=== PATIENT | male | born 1990 | race American Indian/Alaskan Native ===

== ENCOUNTER 2018-10-26 10:01 | Emergency (ER) | payer BC, MEDICAID ==
[2018-10-26 10:09] VITALS: BP 137/74
--- NOTE | 2018-10-26 12:03 | Emergency Department Report ---
ED General Adult HPI - General Chief complaint: Pain General Stated complaint: BACK/ARM/FEET/HANDS PAIN Time Seen by Provider: 10/26/18 11:40 Source: patient Mode of arrival: Ambulatory Limitations: No Limitations - History of Present Illness Initial comments: 28-year-old male presents to ED with diffuse body pain 1 week. 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 Patient states pain is especially in his back and left Achilles tendon. Patient denies injury to left foot or ankle. Reports chronic lower back pain. Patient is ambulatory. -: week(s) (1) Quality: aching Consistency: constant Improves with: none Worsens with: none Associated Symptoms: denies: fever/chills Treatments Prior to Arrival: NSAID - Related Data Previous Rx's Medication Instructions Recorded Last Taken Type Naproxen [Naprosyn] 500 mg PO BID #20 tablet 10/26/18 Unknown Rx methOCARBAMOL [Robaxin TAB] 500 mg PO Q8HR PRN #20 tablet 10/26/18 Unknown Rx Allergies Allergy/AdvReac Type Severity Reaction Status Date / Time No Known Allergies Allergy Unverified 10/26/18 10:03 ED Review of Systems ROS: Stated complaint: BACK/ARM/FEET/HANDS PAIN Other details as noted in HPI Comment: All other systems reviewed and negative Constitutional: denies: chills, fever Musculoskeletal: back pain, arthralgia, myalgia ED Past Medical Hx - Past Medical History Previous Medical History?: No - Surgical History Past Surgical History?: No - Social History Smoking Status: Never Smoker - Medications Home Medications: Home Medications Medication Instructions Recorded Confirmed Last Taken Type Naproxen [Naprosyn] 500 mg PO BID #20 tablet 10/26/18 Unknown Rx methOCARBAMOL [Robaxin TAB] 500 mg PO Q8HR PRN #20 tablet 10/26/18 Unknown Rx ED Physical Exam - General Limitations: No Limitations General appearance: alert, in no apparent distress - Head Head exam: Present: atraumatic, normocephalic - Eye Eye exam: Present: normal appearance - ENT ENT exam: Present: mucous membranes moist - Neck Neck exam: Present: normal inspection - Respiratory Respiratory exam: Present: normal lung sounds bilaterally. Absent: respiratory distress - Cardiovascular Cardiovascular Exam: Present: regular rate, normal rhythm - GI/Abdominal GI/Abdominal exam: Present: soft. Absent: distended, tenderness - Extremities Exam Extremities exam: Present: normal inspection, full ROM. Absent: joint swelling - Back Exam Back exam: Present: full ROM - Neurological Exam Neurological exam: Present: alert, oriented X3, CN II-XII intact, normal gait. Absent: motor sensory deficit - Psychiatric Psychiatric exam: Present: normal affect, normal mood - Skin Skin exam: Present: warm, dry, intact, normal color ED Course Vital Signs 10/26/18 10:07 Temperature 98.4 F Pulse Rate 60 Respiratory 16 Rate Blood Pressure 137/74 O2 Sat by Pulse 98 Oximetry Critical care attestation.: If time is entered above; I have spent that time in minutes in the direct care of this critically ill patient, excluding procedure time. ED Disposition Clinical Impression: Arthralgia Disposition: DC-01 TO HOME OR SELFCARE Is pt being admited?: No Condition: Stable Instructions: Arthralgia (ED) Referrals: DANIEL MCMAHON MD [Staff Physician] - 3-5 Days Time of Disposition: 12:03
== END 2018-10-26 12:28 | disposition home or self-care (01) ==
LOC: ED 10:01
DX: M54.5 Low back pain (principal); G89.29 Other chronic pain; M79.10 Myalgia, unspecified site
CPT/HCPCS: 99282

== ENCOUNTER 2018-12-07 06:55 | Emergency (ER) | payer MEDICAID ==
[2018-12-07] MEDS ORDERED: IBUPROFEN PO ONE (07:52)
--- NOTE | 2018-12-07 07:52 | Emergency Department Report ---
ED Back Pain/Injury HPI - General Chief Complaint: Shoulder Injury Stated Complaint: BODY PAIN Time Seen by Provider: 12/07/18 07:46 Source: patient Limitations: No Limitations, Language Barrier - History of Present Illness Initial Comments: 28 YO COMES TO ER WITH GENERALIZED MUSCLE ACHES AND PAINS AFTER WORKING THE LAST SEVERAL DAYS. 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 THE ENVIRONMENT IS COOL PER PT REPORT. HE STATES "I AM SORE AND I HAVE TO BE AT WORK AT 1000." PAIN WORSE WITH MOVEMENT. IMPROVES WITH REST. HAS TAKEN NO OTC MEDS AT HOME TO ALLEVIATE PAIN. NO TRAUMA/FALL/SYSTEMIC SYMPTOMS/FEVER. PMH NONE PSH NONE RX NONE MD Complaint: other -: Gradual Similar Symptoms Previously: Yes Place: work Radiation: none Quality: aching Improves With: immobilization Worsens With: movement Associated Symptoms: denies other symptoms - Related Data Previous Rx's Medication Instructions Recorded Last Taken Type Naproxen [Naprosyn] 500 mg PO BID #20 tablet 10/26/18 Unknown Rx methOCARBAMOL [Robaxin TAB] 500 mg PO Q8HR PRN #20 tablet 10/26/18 Unknown Rx Allergies Allergy/AdvReac Type Severity Reaction Status Date / Time No Known Allergies Allergy Unverified 10/26/18 10:03 ED Review of Systems ROS: Stated complaint: BODY PAIN Other details as noted in HPI Comment: All other systems reviewed and negative ED Past Medical Hx - Past Medical History HX ACUTE bronchitis Surgical history: no surgical history Psychiatric history: no pertinent history Family history: no significant family history ED Back Pain Physical Exam - Exam General: Vital signs noted. No distress. Alert and acting appropriately. ALERT/ORIENTED NO FOCAL DEFICIT AMBULATORY S1S2 LUNGS CTA ABD SNT FULL ROM ALL EXTREMITIES AMBULATORY IN ACC WITH NORMAL VS; REQUESTING WORK NOTE Back/Abdomen: No Abdominal Tenderness, No Perithoracic Tenderness, No Perilumbar Tenderness, No Sacroiliac Tenderness, No Flank Tenderness, No Straight Leg Raise Pain Neuro: Yes Normal Sensation, Yes Normal DTR's, Yes Normal Gait, No Motor Weakness ED Course Vital Signs 12/07/18 07:01 Temperature 98.1 F Pulse Rate 71 Respiratory 16 Rate Blood Pressure 136/86 O2 Sat by Pulse 99 Oximetry ED Medical Decision Making - Medical Decision Making MUSCULOSKELETAL PAIN NO TRAUMA NORMAL EXAM NORMAL VS REQUESTING WORK NOTE MEDICATED WITH MOTRIN DC HOME WITH DC PLAN OF CARE AND PCP FOLLOW UP IF NEEDED. Vital Signs 12/07/18 07:01 Temperature 98.1 F Pulse Rate 71 Respiratory 16 Rate Blood Pressure 136/86 O2 Sat by Pulse 99 Oximetry - Differential Diagnosis MUSCLE STRAIN Critical care attestation.: If time is entered above; I have spent that time in minutes in the direct care of this critically ill patient, excluding procedure time. ED Disposition Clinical Impression: Musculoskeletal pain Disposition: DC-01 TO HOME OR SELFCARE Is pt being admited?: No Does the pt Need Aspirin: No Condition: Stable Instructions: Musculoskeletal Pain (ED) Additional Instructions: rest hydrate well with water good body mechanics at work diet and activity as tolerated OVER THE COUNTER MOTRIN OR TYLENOL FOR PAIN follow up pcp if persists referral below Referrals: LILIA HOPPER MD [Primary Care Provider] - 3-5 Days Forms: Work/School Release Form(ED) Time of Disposition: 08:28
[2018-12-07 08:50] VITALS: BP 130/109
== END 2018-12-07 08:50 | disposition home or self-care (01) ==
LOC: ED 06:55
DX: M79.10 Myalgia, unspecified site (principal); Z79.899 Other long term (current) drug therapy
CPT/HCPCS: 99282

== ENCOUNTER 2019-02-21 19:24 | Emergency (ER) | payer SELFPAY ==
--- NOTE | 2019-02-21 20:17 | Event Note ---
ED Screening Note Date of service: 02/21/19 Time: 20:12 ED Screening Note: This is a 28 y.o. M. that presents to the ER with bilateral testicular pain x 3 weeks. Patient reports pain as twisting sensation. States symptoms started on right testicle which is swollen. - urinary frequency, urgency, dysuria, pelvic pain, back pain, or chills This initial assessment/diagnostic orders/clinical plan/treatment(s) is/are subject to change based on patients health status, clinical progression and re- assessment by fellow clinical providers in the ED. Further treatment and workup at subsequent clinical providers discretion. Patient/guardian urged not to elope from the ED as their condition may be serious if not clinically assessed and managed. Initial orders include: Testicular US Labs
--- NOTE | 2019-02-21 22:31 | Ultrasound Report ---
Testicular ultrasound INDICATION: Bilateral testicular pain/swelling FINDINGS: The right testicle measures 4.2 cm and the left testicle measures 3.5 cm. The echotexture of the test icles is normal. There is arterial flow in both testicles. Epididymides are unremarkable. No hydrocel es are seen. Arterial flow is symmetric bilaterally. No fluid collections are seen. IMPRESSION: There is arterial flow to both testicles. There is no evidence of torsion. No discrete testicular les ions are seen. Signer Name: Morgan Silveira MD Signed: 02/21/2019 10:26 PM Workstation Name: [id number]
[2019-02-21 23:05] LABS: Bilirubin,Urine NEG (Negative); Blood,Urine MOD (Negative); Color,Urine Yellow (Yellow); Mucus,Urine FEW /HPF; Protein,Urine <15 mg/dL mg/dL (Negative); Urobilinogen,Urine < 2.0 mg/dL (<2.0)
--- NOTE | 2019-02-22 00:25 | Emergency Department Report ---
ED Male HPI - General Chief complaint: Urogenital-Male Stated complaint: TESTICULAR PAIN Time Seen by Provider: 02/21/19 20:12 Source: patient Mode of arrival: Ambulatory Limitations: No Limitations - History of Present Illness Initial comments: This is a 28 y.o. M. that presents to the ER with bilateral testicular pain x 3 weeks. Patient reports pain as twisting sensation. States symptoms started on right testicle which is swollen. - urinary frequency, urgency, dysuria, pelvic pain, back pain, or chills. no penile discharge, no fever, no chills. MD Complaint: testicle pain Onset/Timin -: week(s) Location: right testicle Radiation: none Severity: moderate Severity scale (0 -10): 5 Quality: sharp Consistency: intermittent Improves with: none Worsens with: palpation, movement swelling. denies: discharge, mass, rash, urinary retention, blood in urine, dysuria, fever, nausea/vomiting, incontinence - Related Data Sexually active: Yes Previous Rx's Medication Instructions Recorded Last Taken Type Naproxen [Naprosyn] 500 mg PO BID #20 tablet 10/26/18 Unknown Rx methOCARBAMOL [Robaxin TAB] 500 mg PO Q8HR PRN #20 tablet 10/26/18 Unknown Rx Doxycycline Hyclate [Doxycycline 100 mg PO BID 10 Days #20 tab 02/22/19 Unknown Rx Hyclate TAB] Allergies Allergy/AdvReac Type Severity Reaction Status Date / Time No Known Allergies Allergy Unverified 10/26/18 10:03 ED Review of Systems ROS: Stated complaint: TESTICULAR PAIN Other details as noted in HPI Constitutional: denies: chills, fever Eyes: denies: eye pain, eye discharge, vision change ENT: denies: ear pain, throat pain Respiratory: denies: cough, shortness of breath, wheezing Cardiovascular: denies: chest pain, palpitations Endocrine: no symptoms reported Gastrointestinal: denies: abdominal pain, nausea, diarrhea Genitourinary: testicular pain. denies: urgency, dysuria Musculoskeletal: denies: back pain, joint swelling, arthralgia Skin: denies: rash, lesions Neurological: denies: headache, weakness, paresthesias Psychiatric: denies: anxiety, depression Hematological/Lymphatic: denies: easy bleeding, easy bruising ED Past Medical Hx - Past Medical History Hx Kidney Stones: Yes Additional medical history: HX ACUTE bronchitis - Surgical History Past Surgical History?: No - Social History Smoking Status: Never Smoker Substance Use Type: None - Medications Home Medications: Home Medications Medication Instructions Recorded Confirmed Last Taken Type Naproxen [Naprosyn] 500 mg PO BID #20 tablet 10/26/18 Unknown Rx methOCARBAMOL [Robaxin TAB] 500 mg PO Q8HR PRN #20 tablet 10/26/18 Unknown Rx Doxycycline Hyclate [Doxycycline 100 mg PO BID 10 Days #20 tab 02/22/19 Unknown Rx Hyclate TAB] ED Physical Exam - General Limitations: No Limitations General appearance: alert, in no apparent distress - Head Head exam: Present: atraumatic, normocephalic - Eye Eye exam: Present: normal appearance - ENT ENT exam: Present: mucous membranes moist - Neck Neck exam: Present: normal inspection - Respiratory Respiratory exam: Present: normal lung sounds bilaterally. Absent: respiratory distress - Cardiovascular Cardiovascular Exam: Present: regular rate, normal rhythm, normal heart sounds. Absent: systolic murmur, diastolic murmur, rubs, gallop - GI/Abdominal GI/Abdominal exam: Present: soft, normal bowel sounds. Absent: distended, tenderness, guarding, rebound, rigid, bruit, hernia - Rectal Rectal exam: Present: deferred - exam: Present: normal inspection, testicular tenderness (right epididymal tenderness to palpation), circumcision. Absent: urethral discharge, scrotal swelling, vertical testicular lie External exam: Present: normal external exam. Absent: erythema, swelling, lesions, lacerations, ecchymosis, bleeding - Extremities Exam Extremities exam: Present: normal inspection, full ROM. Absent: tenderness - Back Exam Back exam: Present: normal inspection, full ROM. Absent: tenderness, CVA tenderness (R), CVA tenderness (L), rash noted - Neurological Exam Neurological exam: Present: alert, oriented X3, CN II-XII intact, normal gait - Psychiatric Psychiatric exam: Present: normal affect, normal mood - Skin Skin exam: Present: warm, dry, intact, normal color. Absent: rash ED Course Vital Signs 02/21/19 19:30 Temperature 98.7 F Pulse Rate 95 H Respiratory 18 Rate Blood Pressure 145/89 O2 Sat by Pulse 100 Oximetry ED Medical Decision Making - Lab Data Labs 02/21/19 22:00 Urine Color Yellow Urine Turbidity Clear Urine pH 6.0 Ur Specific [place] 1.020 Urine Protein <15 mg/dl Urine Glucose (UA) Neg Urine Ketones Neg Urine Blood Mod Urine Nitrite Neg Urine Bilirubin Neg Urine Urobilinogen < 2.0 Ur Leukocyte Esterase Neg Urine WBC (Auto) 1.0 Urine RBC (Auto) 4.0 U Epithel Cells (Auto) < 1.0 Urine Mucus Few - Medical Decision Making this is epididymitis, US scrotum: normal, there is no discharge no swelling no hernia on exam, ua: normal, plan: tx of epididymitis with doxycycline po , ibuprofen, follow up with pcp in 2-3 days, pt verbalized agreement and understanding of discharge plan, Critical care attestation.: If time is entered above; I have spent that time in minutes in the direct care of this critically ill patient, excluding procedure time. ED Disposition Clinical Impression: Epididymitis Disposition: DC-01 TO HOME OR SELFCARE Is pt being admited?: No Does the pt Need Aspirin: No Condition: Stable Instructions: Epididymitis (ED) Prescriptions: Doxycycline Hyclate [Doxycycline Hyclate TAB] 100 mg PO BID 10 Days #20 tab Referrals: [facility] [Outside] - 3-5 Days Forms: STI Treatment and Prevention Time of Disposition: 00:26
[2019-02-22 06:25] VITALS: BP 141/69
== END 2019-02-22 01:20 | disposition home or self-care (01) ==
LOC: ED 19:24
DX: N45.1 Epididymitis (principal)
CPT/HCPCS: 81001; 93975

== ENCOUNTER 2019-04-19 15:55 | Emergency (ER) | payer SELFPAY ==
[2019-04-19] MEDS ORDERED: IBUPROFEN 600 MG TAB PO ONE ×2 (16:28→16:29)
--- NOTE | 2019-04-19 16:31 | Emergency Department Report ---
Blank Doc - Documentation Documentation: 29-year-old male that presents with URI symptoms. This initial assessment/diagnostic orders/clinical plan/treatment(s) is/are subject to change based on patient's health status, clinical progression and re- assessment by fellow clinical providers in the ED. Further treatment and workup at subsequent clinical providers discretion. Patient/guardians urged not to elope from the ED as their condition may be serious if not clinically assessed and managed. Initial orders include: 1- Patient sent to ACC for further evaluation and treatment 2- sung-RN to repeat vitals 3- CXR
--- NOTE | 2019-04-19 17:36 | XRay Report ---
CHEST 2 VIEWS INDICATION: cough. COMPARISON: None. FINDINGS: Support devices: None. Heart: Within normal limits. Lungs/Pleura: No acute air space or interstitial disease. No significant pleural effusion. IMPRESSION: No acute findings. Signer Name: Maximino Joshua MD Signed: 04/19/2019 5:32 PM Workstation Name: [id number]
--- NOTE | 2019-04-19 20:31 | Emergency Department Report ---
Minor Respiratory - HPI Chief Complaint: Upper Respiratory Infection Stated Complaint: FLU LIKE SX Time Seen by Provider: 04/19/19 16:30 Duration: 2 Days Pain Location: Chest Severity: moderate Minor Respiratory: Yes Rhinorrhea, Yes Able to Tolerate Fluids, Yes Cough, Yes Sick Contacts, Yes Chest Pain, Yes Fever, No Sore Throat, No Ear Pain, No Hemoptysis, No Shortness of Breath Other History: This is a 29-year-old -[place] male who presents to the emergency room with chest discomfort, fever, chills, cough, and myalgia for 2 days. Patient states he's taken DayQuil and NyQuil with minimal improvement of symptoms. ED Review of Systems ROS: Stated complaint: FLU LIKE SX Other details as noted in HPI Constitutional: chills, fever ENT: congestion. denies: ear pain, throat pain Respiratory: cough. denies: shortness of breath, wheezing Cardiovascular: chest pain. denies: palpitations Gastrointestinal: denies: abdominal pain, nausea, diarrhea Musculoskeletal: myalgia. denies: back pain, joint swelling, arthralgia Skin: denies: rash, lesions Neurological: denies: headache, weakness, paresthesias Psychiatric: denies: anxiety, depression ED Past Medical Hx - Past Medical History Previous Medical History?: Yes Hx Kidney Stones: Yes Additional medical history: HX ACUTE bronchitis - Surgical History Past Surgical History?: No - Social History Smoking Status: Never Smoker Substance Use Type: None - Medications Home Medications: Home Medications Medication Instructions Recorded Confirmed Last Taken Type Naproxen [Naprosyn] 500 mg PO BID #20 tablet 10/26/18 Unknown Rx methOCARBAMOL [Robaxin TAB] 500 mg PO Q8HR PRN #20 tablet 10/26/18 Unknown Rx Doxycycline Hyclate [Doxycycline 100 mg PO BID 10 Days #20 tab 02/22/19 Unknown Rx Hyclate TAB] Benzonatate [Tessalon Perles] 100 mg PO Q8HR PRN #30 capsule 04/19/19 Unknown Rx Minor Respiratory Exam - Exam General: Vital signs noted. No distress. Alert and acting appropriately. HEENT: Yes Moist Mucous Membranes, Yes Rhinorrhea (turbinates congested with clear discharge), No Pharyngeal Erythema, No Pharyngeal Exudates, No Conjuctival Injection, No Frontal Tenderness, No Maxillary Tenderness Ear: Neither TM Bulge, Neither TM Erythema, Neither EAC Pain, Neither EAC Discharge Neck: Yes Supple, No Adenopathy Lungs: Yes Good Air Exchange, No Wheezes, No Ronchi, No Stridor, No Cough, No Labored Respirations, No Retractions, No Use of Accessory Muscles, No Other Abnormal Lung Sounds Heart: Yes Regular, No Murmur Abdomen: Yes Normal Bowel Sounds, No Tenderness, No Peritoneal Signs Skin: No Rash, No Edema Neurologic: Alert and oriented, no deficits. Musculoskeletal: Unremarkable. ED Course Vital Signs 04/19/19 04/19/19 16:25 16:37 Temperature 101.4 F H Pulse Rate 113 H Respiratory 18 18 Rate Blood Pressure 148/88 O2 Sat by Pulse 97 Oximetry Vital Signs 04/19/19 04/19/19 04/19/19 16:25 16:37 20:54 Temperature 101.4 F H 98.8 F Pulse Rate 113 H 84 Respiratory 18 18 18 Rate Blood Pressure 148/88 Blood Pressure 136/87 [Right] O2 Sat by Pulse 97 100 Oximetry ED Medical Decision Making - Radiology Data Radiology results: report reviewed CHEST 2 VIEWS INDICATION: cough. COMPARISON: None. FINDINGS: Support devices: None. Heart: Within normal limits. Lungs/Pleura: No acute air space or interstitial disease. No significant pleural effusion. IMPRESSION: No acute findings. - Medical Decision Making 29 y.o. male that presents with URI symptoms. Patient examined by me and stable. No distress noted. Temperature elevated and tachycardic on arrival. Given analgesics with improvement. Chest xray has been obtained and negative for acute cardiopulmonary findings.. Patient notified of x-ray results with no questions. This is viral syndrome. Continue [id number]. Start Tessalon Perles for cough. Discharged home stable. Encouraged to do supportive care for URI. Follow up with Primary Care Provider in 2-3 days. Critical care attestation.: If time is entered above; I have spent that time in minutes in the direct care of this critically ill patient, excluding procedure time. ED Disposition Clinical Impression: Sore throat (viral), Cough in adult, Acute viral syndrome Disposition: TO HOME OR SELFCARE Is pt being admited?: No Condition: Stable Instructions: Viral Syndrome (ED), Cold Symptoms (ED) Additional Instructions: Increase fluid intake and rest. Wash hands frequently. Continue taking Tylenol or ibuprofen to control fever. F/U with Primary Care Provider. Return to ER if fever, SOB, or difficulty breathing after 48 hours of supportive care. Prescriptions: Benzonatate [Tessalon Perles] 100 mg PO Q8HR PRN #30 capsule PRN Reason: Cough Referrals: [facility] [Outside] - 3-5 Days [facility] [Outside] - 3-5 Days [facility] [Outside] - 3-5 Days Time of Disposition: 21:41
[2019-04-19 20:55] VITALS: BP 136/87
== END 2019-04-19 21:45 | disposition home or self-care (01) ==
LOC: ED 15:55
DX: J02.9 Acute pharyngitis, unspecified (principal); B34.9 Viral infection, unspecified; N20.0 Calculus of kidney; J20.9 Acute bronchitis, unspecified; Z79.899 Other long term (current) drug therapy
CPT/HCPCS: 71046

== ENCOUNTER 2019-08-22 02:02 | Emergency (ER) | payer OTHER ==
[2019-08-22 02:11] VITALS: BP 161/90
[2019-08-22] MEDS ORDERED: traMADol 50 MG TAB PO ONE (03:14)
[2019-08-22] MEDS ORDERED: SULFAMETHOXAZOLE/TRIMETHOPRIM 800/160MG DS TAB PO ONE (03:15)
--- NOTE | 2019-08-22 03:45 | Emergency Department Report ---
Abscess Boil HPI - HPI Chief Complaint: Skin/Abscess/Foreign Body Stated Complaint: PAIN AND RASH UNDER ARMPITS Time Seen by Provider: 08/22/19 03:12 History: Yes Pain, Yes Previous History, No Fever, No Purulent Drainage, No Numbness, No Foreign Body, No Insect Bite HPI: small abscess x bilat axillary, hx of same, there is no fever or chills no n/v Home Medications: Previous Rx's Medication Instructions Recorded Last Taken Type Naproxen [Naprosyn] 500 mg PO BID #20 tablet 10/26/18 Unknown Rx methOCARBAMOL [Robaxin TAB] 500 mg PO Q8HR PRN #20 tablet 10/26/18 Unknown Rx Doxycycline Hyclate [Doxycycline 100 mg PO BID 10 Days #20 tab 02/22/19 Unknown Rx Hyclate TAB] Benzonatate [Tessalon Perles] 100 mg PO Q8HR PRN #30 capsule 04/19/19 Unknown Rx Ibuprofen [Motrin 800 MG tab] 800 mg PO Q8HR PRN #30 tablet 08/22/19 Unknown Rx Sulfamethoxazole/Trimethoprim 1 each PO BID 10 Days #20 tablet 08/22/19 Unknown Rx [Bactrim DS TAB] Allergies/Adverse Reactions: Allergies Allergy/AdvReac Type Severity Reaction Status Date / Time No Known Allergies Allergy Verified 08/22/19 02:09 ED Review of Systems ROS: Stated complaint: PAIN AND RASH UNDER ARMPITS Other details as noted in HPI Constitutional: denies: chills, fever Eyes: denies: eye pain, eye discharge, vision change ENT: denies: ear pain, throat pain Respiratory: denies: cough, shortness of breath, wheezing Cardiovascular: denies: chest pain, palpitations Endocrine: no symptoms reported Gastrointestinal: denies: abdominal pain, nausea, vomiting, diarrhea Genitourinary: denies: urgency, dysuria Musculoskeletal: denies: back pain, joint swelling, arthralgia Skin: lesions (abscesses axillary ). denies: rash Neurological: denies: headache, weakness, paresthesias Psychiatric: denies: anxiety, depression Hematological/Lymphatic: denies: easy bleeding, easy bruising ED Past Medical Hx - Past Medical History Previous Medical History?: Yes Hx Kidney Stones: Yes Hx Asthma: Yes Additional medical history: HX ACUTE bronchitis. shingles - Surgical History Past Surgical History?: No - Social History Smoking Status: Never Smoker Substance Use Type: None - Medications Home Medications: Home Medications Medication Instructions Recorded Confirmed Last Taken Type Naproxen [Naprosyn] 500 mg PO BID #20 tablet 10/26/18 Unknown Rx methOCARBAMOL [Robaxin TAB] 500 mg PO Q8HR PRN #20 tablet 10/26/18 Unknown Rx Doxycycline Hyclate [Doxycycline 100 mg PO BID 10 Days #20 tab 02/22/19 Unknown Rx Hyclate TAB] Benzonatate [Tessalon Perles] 100 mg PO Q8HR PRN #30 capsule 04/19/19 Unknown Rx Ibuprofen [Motrin 800 MG tab] 800 mg PO Q8HR PRN #30 tablet 08/22/19 Unknown Rx Sulfamethoxazole/Trimethoprim 1 each PO BID 10 Days #20 tablet 08/22/19 Unknown Rx [Bactrim DS TAB] ED Abscess Boil Physical Exam - Exam General: Vital signs noted. No distress. Alert and acting appropriately. Size: 1 cm (multiple small abscesses axillary) Exam: Yes Tenderness, Yes Fluctuance, Yes Surrounding Cellulites/Erythema, Yes Normal Neurologic Exam, Yes Normal Circulation, No Lymphangitis, No Crepitation, No Heart Murmur I & D Note - I & D Note I & D Note: 1 site cleaned with chloraprep, manually express scant purulent output, all bleeding controlled, sterile dressing applied, pt tolerated procedure with minimal distress. ED Course Vital Signs 08/22/19 02:10 Temperature 98.1 F Pulse Rate 67 Respiratory 20 Rate Blood Pressure 161/90 O2 Sat by Pulse 99 Oximetry Critical care attestation.: If time is entered above; I have spent that time in minutes in the direct care of this critically ill patient, excluding procedure time. ED Medical Decision Making - Medical Decision Making This is a recurrent abscess problem for this patient , abscesses are small less than 1 mm plan Bactrim p.o. x10 days, NSAIDs PRN pain, wash with soap and water, follow-up with primary care in 2 to 3 days. Patient verbalizes agreement and understanding with discharge plan patient DC'd home in stable condition at this time. ED Disposition Clinical Impression: Cellulitis, axillary fold Disposition: DC-01 TO HOME OR SELFCARE Is pt being admited?: No Does the pt Need Aspirin: No Condition: Stable Instructions: Cellulitis (ED) Prescriptions: Sulfamethoxazole/Trimethoprim [Bactrim DS TAB] 1 each PO BID 10 Days #20 tablet Ibuprofen [Motrin 800 MG tab] 800 mg PO Q8HR PRN #30 tablet PRN Reason: pain Referrals: HUGO ROSAS MD [Staff Physician] - 3-5 Days Forms: Work/School Release Form(ED) Time of Disposition: 03:52
== END 2019-08-22 04:09 | disposition home or self-care (01) ==
LOC: ED 02:02
DX: L03.112 Cellulitis of left axilla (principal); L03.111 Cellulitis of right axilla; J45.909 Unspecified asthma, uncomplicated; Z79.899 Other long term (current) drug therapy
CPT/HCPCS: 99282